=== PATIENT | female | born 2005 | race Hispanic/Latino ===

== ENCOUNTER → 2024-10-25 | Outpatient (CLI) | payer SELFPAY ==
[2024-10-30 12:08] LABS: Testosterone, % Free 2.80 % (0.50-2.80); Testosterone, Free 1.20 ng/dL (0.10-0.85)
== END | disposition home or self-care (01) ==
LOC: MTLAB 13:47
DX: N92.6 Irregular menstruation, unspecified (principal)
CPT/HCPCS: 36415; 83036; 84402; 84403